=== PATIENT | male | born 1995 | race Caucasian/White ===

== ENCOUNTER 2018-09-21 21:21 | Emergency (ER) | payer OTHER ==
[2018-09-21 21:36] VITALS: BP 152/93
[2018-09-21 22:48] LABS: Urine Appearance Clear; Urine Bilirubin Negative (Negative); Urine Blood Negative (Negative); Urine Color Yellow; Urine Glucose Negative (Negative); Urine Ketones Negative (Negative); Urine Nitrite Negative (Negative); Urine Protein Negative (Negative); Urine Specific Gravity 1.011 (1.010-1.030); Urine Urobilinogen Negative (Negative)
--- NOTE | 2018-09-21 23:57 | ED ---
GI/ HPI - HPI Summary HPI Summary: 23-year-old male presents with penile pain today. He states that last night presents during sex partner grabbed his penis to hard and he developed pain. He states he was able to have an erection afterwards. He denies any swelling. Pain is at the base of his penis. No difficulties urinating. No blood in his urine. He hasn't taking anything for his pain. No testicular pain. - History of Current Complaint Chief Complaint: EDUrogenitalProblems Time Seen by Provider: 09/21/18 22:32 Stated Complaint: PAIN IN PENIS SINCE SEXUAL INTERCOURSE PER PT Pain Intensity: 3 - Allergy/Home Medications Allergies/Adverse Reactions: Allergies Allergy/AdvReac Type Severity Reaction Status Date / Time No Known Allergies Allergy Verified 09/21/18 21:36 Home Medications: Home Medications NK [No Home Medications Reported] 09/21/18 [History Confirmed 09/21/18] PMH/Surg Hx/FS Hx/Imm Hx Endocrine/Hematology History: Denies: Hx Anticoagulant Therapy Respiratory History: Denies: Hx Asthma Infectious Disease History: No Infectious Disease History: Denies: Traveled Outside the [place] in Last 30 Days - Family History Known Family History: Positive: Non-Contributory - Social History Alcohol Use: Occasionally Substance Use Type: Reports: None Smoking Status (MU): Never Smoked Tobacco Review of Systems Negative: Fever Negative: Chest Pain Negative: Shortness Of Breath Positive: other - penile pain All Other Systems Reviewed And Are Negative: Yes Physical Exam Triage Information Reviewed: Yes Vital Signs On Initial Exam: Initial Vitals Temp Pulse Resp BP Pulse Ox 99.8 F 93 16 152/93 98 09/21/18 21:31 09/21/18 21:31 09/21/18 21:31 09/21/18 21:31 09/21/18 21:31 Vital Signs Reviewed: Yes Appearance: Positive: Well-Appearing Skin: Positive: Warm, Dry Head/Face: Positive: Normal Head/Face Inspection Eyes: Positive: Normal, Conjunctiva Clear ENT: Positive: Pharynx normal Respiratory/Lung Sounds: Positive: Clear to Auscultation, Breath Sounds Present Cardiovascular: Positive: Normal, RRR Abdomen Description: Positive: Nontender, Soft Bowel Sounds: Positive: Present Male Genital Exam: Positive: Normal Genitalia, Other - tenderness base of penis , no deformity. Negative: Epididymal Tenderness, Scrotum Tenderness (R), Scrotum Tenderness (L) Musculoskeletal: Positive: Normal Neurological: Positive: Normal Psychiatric: Positive: Normal Diagnostics - Vital Signs Vital Signs Temp Pulse Resp BP Pulse Ox 09/21/18 21:31 99.8 F 93 16 152/93 98 - Laboratory Lab Results: Lab Results 09/21/18 Range/Units 22:35 Urine Color Yellow Urine Appearance Clear Urine pH 6.0 (5-9) Ur Specific [place] 1.011 (1.010-1.030) Urine Protein Negative (Negative) Urine Ketones Negative (Negative) Urine Blood Negative (Negative) Urine Nitrate Negative (Negative) Urine Bilirubin Negative (Negative) Urine Urobilinogen Negative (Negative) Ur Leukocyte Esterase Negative (Negative) Urine Glucose Negative (Negative) Lab Statement: Any lab studies that have been ordered have been reviewed, and results considered in the medical decision making process. - Ultrasound No standard instances Ultrasound Interpretation Completed By: Radiologist Summary of Ultrasound Findings: IMPRESSION: 1. Prominent vessels at the base of the penis on the left side. This is an area. of the patient's pain. No hematoma or mass. 2. Ultrasound of the testicles and epididymides are normal. 3. Left varicocele. GIGU Course/Dx - Course Course Of Treatment: 23-year-old male presents with penile pain today. He states that last night presents during sex partner grabbed his penis to hard and he developed pain. He states he was able to have an erection afterwards. He denies any swelling. Pain is at the base of his penis. No difficulties urinating. No blood in his urine. He hasn't taking anything for his pain. No testicular pain. On exam tenderness of the base of the penis. No deformity noted. Ultrasound shows prominent vessels. Discussed likely inflammatory. Told to take ibuprofen. Told to wait and not have sex until symptoms resolve. Told if continues having symptoms follow-up with urology. Patient understand and agrees plan. - Diagnoses Differential Diagnoses - Male: Epididymitis, Testicular Torsion, Urinary Tract Infection Provider Diagnoses: Penile pain Discharge - Sign-Out/Discharge Documenting (check all that apply): Patient Departure Patient Received Moderate/Deep Sedation with Procedure: No - Discharge Plan Condition: Good Disposition: HOME Referrals: No Primary Care Phys,NOPCP [Primary Care Provider] - Amandeep Palmer MD [Medical Doctor] - Additional Instructions: follow up with urology if no improvement Take tyenlol or ibuprofen for pain as needed Return to ED if develop any new or worsening symptoms - Billing Disposition and Condition Condition: GOOD Disposition: Home
== END 2018-09-22 00:03 | disposition home or self-care (01) ==
LOC: ED 21:21
DX: N48.89 Other specified disorders of penis (principal); I86.1 Scrotal varices
CPT/HCPCS: 76870; 81003; 99282

== ENCOUNTER 2018-11-21 03:54 | Emergency (ER) | payer OTHER ==
--- NOTE | 2018-11-21 04:30 | ED ---
Substance Abuse/Use - HPI Summary HPI Summary: Pt is a 23 y/o M presenting to the ED brought in by EMS for substance abuse. 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 He denies abd pain or fevers. He denies any drug use. - History Of Current Complaint Chief Complaint: EDSubstanceAbuse Stated Complaint: ETOH PER EMS Hx Obtained From: Patient Onset/Duration of Drug/ETOH Abuse: Hours Timing Of Abuse: Binge Use Severity Initially: Moderate Severity Currently: Mild Character: Stuporous Aggravating Factor(s): Nothing Alleviating Factor(s): Nothing - Allergies/Home Medications Allergies/Adverse Reactions: Allergies Allergy/AdvReac Type Severity Reaction Status Date / Time No Known Allergies Allergy Verified 09/21/18 21:36 PMH/Surg Hx/FS Hx/Imm Hx Previously Healthy: Yes Endocrine/Hematology History: Denies: Hx Anticoagulant Therapy Respiratory History: Denies: Hx Asthma Infectious Disease History: No Infectious Disease History: Denies: Traveled Outside the [place] in Last 30 Days - Family History Known Family History: Negative: Cardiac Disease - Social History Alcohol Use: Occasionally Hx Substance Use: No Substance Use Type: Reports: None Hx Tobacco Use: No Smoking Status (MU): Never Smoked Tobacco Review of Systems Negative: Fever Negative: Abdominal Pain All Other Systems Reviewed And Are Negative: Yes Physical Exam - Summary Physical Exam Summary: Appearance: Well-appearing, Well-nourished, lying in bed comfortably Skin: Warm, dry, no obvious rash Eyes: sclera anicteric, no conjunctival pallor ENT: mucous membranes moist, pharynx appears normal Neck: Supple, nontender Respiratory: Clear to auscultation, no signs of respiratory distress Cardiovascular: Normal S1, S2. No murmurs. Normal distal pulses in tibial and radial bilaterally. Abdomen: Soft, nontender, normal active bowel sounds present Musculoskeletal: Normal, Strength/ROM Intact Neurological: A&Ox3, awake and alert, mentation is normal, speech is fluent and appropriate Psychiatric: affect is normal, does not appear anxious or depressed Triage Information Reviewed: Yes Vital Signs On Initial Exam: Initial Vitals Temp Pulse Resp BP Pulse Ox 98.4 F 99 16 127/61 99 11/21/18 04:08 11/21/18 04:08 11/21/18 04:08 11/21/18 04:08 11/21/18 04:08 Vital Signs Reviewed: Yes Diagnostics - Vital Signs Vital Signs Temp Pulse Resp BP Pulse Ox 11/21/18 04:08 98.4 F 99 16 127/61 99 - Laboratory Result Diagrams: 11/21/18 07:52 11/21/18 07:51 Lab Statement: Any lab studies that have been ordered have been reviewed, and results considered in the medical decision making process. Course/Dx - Course Course Of Treatment: Pt is a 23 y/o M presenting to the ED brought in by EMS for substance abuse. 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 He denies abd pain or fevers. He denies any drug use. Pt's physical exam is normal. He will be discharged with a dx of alcohol intoxication. Patient is signed out from Dr. Oviedo to Dr. Parrish at 0700 shift change pending sobriety. - Diagnoses Provider Diagnoses: Alcohol intoxication Discharge - Sign-Out/Discharge Documenting (check all that apply): Sign-Out Patient Signing out patient TO: Rachel Parrish Patient Received Moderate/Deep Sedation with Procedure: No - Discharge Plan Condition: Stable Disposition: HOME Patient Education Materials: Alcohol Intoxication (ED) Referrals: [facility] [Outside] - If Needed Additional Instructions: Your alcohol level was 145 at 0800 this am. At the rate of typical alcohol metabolism your level should be close to 100. You are also clinically sober, able to eat, and can walk. We feel you are a safe discharge at this time. Return to the ER if you have any new or worsening symptoms. - Billing Disposition and Condition Condition: STABLE Disposition: Home - Attestation Statements Document Initiated by Scribe: Yes Documenting Scribe: Florecita Moralez Provider For Whom Angelicaibe is Documenting (Include Credential): Arik Oviedo MD. Scribe Attestation: Florecita Henriquez and Carlos Moralez, scribed for Arik Oviedo MD. on at 0422. Scribe Documentation Reviewed: Yes Provider Attestation: The documentation as recorded by the scribe, Florecita Benson and Carlos Moralez accurately reflects the service I personally performed and the decisions made by Arik zapata MD. Status of Scribe Document: Viewed
--- NOTE | 2018-11-21 07:36 | ED ---
Progress - Progress Note Progress Note: Patient is received as a sign out from Dr. Oviedo to Dr. Roland at 0700 11/21/18 shift change pending sobriety of this alcohol intoxicated patient. 0746 - Patient reports that he feels better overall. He denies STEVENSON, dizziness, neck pain. Patient is certain he did not receive a head injury but also notes that he is unsure of how he arrived in ED. He denies chest pain, SOB, leg pain. Patient believes he vomited multiple times throughout the night. Bloodwork, UA to be obtained. He lives in dorms with housemates. He denies smoking cigarettes , substance usage. No Hx of asthma, thyroid disease. PSHx of hernia repair 4 years ago. FMHx of HTN endorsed. Patient does not take any daily medications, no allergies to food are noted. 1120 - Bloodwork, UA reviewed with patient. Patient reports improvement overall. At this time, patient is clinically sober, as well as sober by estimated metabolism of alcohol based on level done in ED. Patient ambulated with steady gait, was able to eat and drink, and he states that he will take Uber home and has housemates at his place of residence who will watch for him. He is agreeable with discharge to home. EMS run sheet reviewed with pt, as he asked for details. Re-Evaluation - Re-Evaluation First Eval Re-Evaluation Time: 07:46 Change: Improved Comment: 0746 - Patient reports that he feels better overall. He denies STEVENSON, dizziness, neck pain. Patient is certain he did not receive a head injury but also notes that he is unsure of how he arrived in ED. He denies chest pain, SOB , leg pain. Patient believes he vomited multiple times throughout the night. Bloodwork, UA to be obtained. He lives with housemates. He denies smoking cigarettes, substance usage. No Hx of asthma, thyroid disease. PSHx of hernia repair 4 years ago. FMHx of HTN endorsed. Patient does not take any daily medications, no allergies to food are noted. Second Eval Re-Evaluation Time: 11:20 Change: Improved Comment: Bloodwork, UA reviewed with patient. Patient reports improvement overall. At this time, patient is clinically sober and blood alcohol level should be legally sober as well, based on usual alcohol metabolism. Patient ambulated with steady gait,and was able to eat and drink and he states that he will take Uber home and has housemates at his place of residence who can watch out for him. He is agreeable with discharge to home. Course/Dx - Course Course Of Treatment: Patient is received as a sign out from Dr. Oviedo to Dr. Roland at 0700 11/21/18 shift change pending sobriety of this alcohol intoxicated patient. 0746 - Patient reports that he feels better overall. He denies STEVENSON, dizziness, neck pain. Patient is certain he did not receive a head injury but also notes that he is unsure of how he arrived in ED. He denies chest pain, SOB, leg pain. Patient believes he vomited multiple times throughout the night. Bloodwork, UA to be obtained. He lives in dorms with housemates. He denies smoking cigarettes, substance usage. No Hx of asthma, thyroid disease. PSHx of hernia repair 4 years ago. FMHx of HTN endorsed. Patient does not take any daily medications, no allergies to food are noted. Labs showed WBC 12.1, MPV 6.1, absolute neuts 9.8, glucose 114. UA negative, serum alcohol 145, urine tox negative. 1120 - Bloodwork, UA reviewed with patient. Patient reports improvement overall. At this time, patient is clinically sober and estimated to be legally sober as well, based on usual alcohol metabolism. Patient ambulated with steady gait, he states that he will take Uber home and has housemates at his place of residence who will check on him. He is agreeable with discharge to home. - Diagnoses Provider Diagnoses: Alcohol intoxication Discharge - Sign-Out/Discharge Documenting (check all that apply): Patient Departure - discharge Patient Received Moderate/Deep Sedation with Procedure: No - Discharge Plan Condition: Stable Disposition: HOME Patient Education Materials: Alcohol Intoxication (ED) Referrals: [facility] [Outside] - If Needed Additional Instructions: Your alcohol level was 145 at 0800 this am. At the rate of typical alcohol metabolism your level should be close to 100. You are also clinically sober, able to eat, and can walk. We feel you are a safe discharge at this time. Return to the ER if you have any new or worsening symptoms. - Billing Disposition and Condition Condition: STABLE Disposition: Home - Attestation Statements Document Initiated by Scribe: Yes Documenting Scribe: SHONA HERCULES Provider For Whom Scribe is Documenting (Include Credential): ALFREDA ROLAND MD Scribe Attestation: ISHONA, scribed for ALFREDA ROLAND MD on 11/24/18 at 0219. Scribe Documentation Reviewed: Yes Provider Attestation: The documentation as recorded by the SHONA haile accurately reflects the service I personally performed and the decisions made by me, ALFREDA ROLAND MD Status of Scribe Document: Viewed
[2018-11-21 08:18] LABS: ABS Lymphocytes 1.7 10^3/ul (1.0-4.8); ABS Monocytes 0.5 10^3/ul (0-0.8); ABS Neutrophils 9.8 10^3/ul (1.5-7.7); Eosinophil % 0.2 %; Hematocrit 47 % (42-52); Hemoglobin 16.1 g/dL (14.0-18.0); Lymphocyte % 14.3 %; Mean Corpuscular HGB Conc 35 g/dL (31-36); Mean Corpuscular Hemoglobin 31 pg (27-31); Mean Corpuscular Volume 89 fL (80-94); Mean Platelet Volume 6.1 fL (7.4-10.4); Nucleated Red Blood Cells % 0.1; Platelet Count 301 10^3/uL (150-450); Red Blood Count 5.24 10^6 /uL (4.18-5.48); Red Cell Distribution Width 12 % (10.5-15); White Blood Count 12.1 10^3/uL (3.5-10.8)
[2018-11-21 08:22] LABS: Albumin 4.6 g/dL (3.2-5.2); Albumin/Globulin Ratio 1.7 (1-3); BUN/Creatinine Ratio 12.7 (8-20); Calcium 9.2 mg/dL (8.6-10.3); EGFR African American 148.4 (>60); EGFR Non-African American 122.6 (>60); Globulin 2.7 g/dL (2-4); Potassium 3.8 mmol/L (3.5-5.0); Total Bilirubin 0.5 mg/dL (0.2-1.0); Total Protein 7.3 g/dL (6.4-8.9)
[2018-11-21 08:51] LABS: Urine Appearance Clear; Urine Bilirubin Negative (Negative); Urine Blood Negative (Negative); Urine Color Yellow; Urine Glucose Negative (Negative); Urine Ketones Negative (Negative); Urine Nitrite Negative (Negative); Urine Protein Negative (Negative); Urine Specific Gravity 1.013 (1.010-1.030); Urine Urobilinogen Negative (Negative)
[2018-11-21 09:05] LABS: Urine Benzodiazepine Screen None Detected (None Detect); Urine Opiates Screen None Detected (None Detect)
[2018-11-21 11:51] VITALS: BP 119/74
== END 2018-11-21 11:45 | disposition home or self-care (01) ==
LOC: ED 03:54
DX: F10.129 Alcohol abuse with intoxication, unspecified (principal)
CPT/HCPCS: 36415; 80053; 80307; 80320; 81003; 85025; 99285; G0480